=== PATIENT | male | born 2000 | race Asian ===

== ENCOUNTER 2022-02-23 20:47 | Emergency (ER) | payer BC ==
[~2022-02-23] VITALS: Ht 172.7 cm; Wt 58.1 kg
[2022-02-23 20:50] VITALS: BP_SYST 130
--- NOTE | 2022-02-23 20:50 | NUR ---
Patient triaged and placed in waiting room. VSS and patient appears in no acute distress at this time. Accompanied by FRIEND, awaiting available bed, and MD notified of need for MSE.
--- NOTE | 2022-02-23 21:14 | NUR ---
CALLED AND SPOKE WITH DONOVAN AT [facility] [employer] AND INFORMATION GIVEN, THEY WILL BE SENDING OUT AN OFFICER.
--- NOTE | 2022-02-23 21:40 | NUR ---
BROUGHT BACK TO BED #2 AND REPORT GIVEN TO DEXTER
--- NOTE | 2022-02-23 22:20 | NUR ---
DR SAAVEDRA AT BEDSIDE FOR EVALUATION
[2022-02-23] MEDS ORDERED: KETOROLAC TROMETHAMINE 30 MG VIAL IVP ONE (23:00)
[2022-02-23 23:13] LABS: BASOPHILS % (AUTO) 0.2 % (0.0-2.0); EOSINOPHILS % (AUTO) 0.3 % (0.0-4.0); HEMATOCRIT 46.4 % (36-54); HEMOGLOBIN 15.8 g/dL (14.0-18.0); LYMPHOCYTES # (AUTO) 1.5 K/uL (1.0-5.5); LYMPHOCYTES % (AUTO) 14.3 % (20.5-51.5); MEAN CORPUSCULAR HEMOGLOBIN 31 pg (27-31); MEAN CORPUSCULAR HGB CONC 34 % (32-36); MEAN CORPUSCULAR VOLUME 92 fL (79.0-98.0); MONOCYTES # (AUTO) 0.7 K/uL (0.0-1.0); MONOCYTES % (AUTO) 6.9 % (1.7-9.3); NEUTROPHILS # (AUTO) 8.3 K/uL (1.8-7.7); NEUTROPHILS % (AUTO) 78.3 % (40.0-70.0); PLATELET COUNT (AUTO) 190 K/uL (130-430); RED BLOOD CELL COUNT(AUTO) 5.05 MIL/uL (4.2-6.2); RED CELL DISTRIBUTION WIDTH 13.6 % (9.0-15.0); WHITE BLOOD COUNT (AUTO) 10.6 K/uL (4.8-10.8)
[2022-02-23] MEDS ORDERED: NACL 0.9% 1,000 ML IV ONE (23:15)
[2022-02-23] MEDS ORDERED: MORPHINE 4 MG INJ. 4 MG/ML VIAL IVP ONE (23:15)
--- NOTE | 2022-02-23 23:44 | NUR ---
[facility] [employer] AT BEDSIDE FOR EVALUATION
[2022-02-23 23:45] LABS: CALCIUM 9.2 mg/dL (8.4-11.0); CREATININE 0.79 mg/dL (0.55-1.30); POTASSIUM 3.4 mmol/L (3.5-5.1)
[2022-02-23 23:51] LABS: ALBUMIN 4.1 g/dL (3.4-4.8); TOTAL BILIRUBIN 1.3 mg/dL (0.0-1.0)
[2022-02-24] MEDS ORDERED: iohexoL 300 mgI/mL, 150 ML INFUS..BTL IV ONE (00:02)
--- NOTE | 2022-02-24 01:01 | NUR ---
REPORT WAS MADE BY OFFICER CECILE FROM [facility], REPORT #[id number]
[2022-02-24] MEDS ORDERED: IBUP-1969 PO (03:19)
--- NOTE | 2022-02-24 03:31 | NUR ---
Patient given written and verbal discharge instructions and verbalizes understanding. ER MD discussed with patient the results and treatment provided. Patient in stable condition. ID arm band removed. IV catheter removed intact and dressing applied, no active bleeding. Rx of [place] 5 mg given. Patient educated on pain management and to follow up with PMD. Pain Scale 0. Opportunity for questions provided and answered. Medication side effect fact sheet provided.
[2022-02-24 03:32] VITALS: BP_SYST 130
== END 2022-02-24 03:31 | disposition home or self-care (01) ==
LOC: SED 20:47
DX: S22.41XA Multiple fractures of ribs, right side, initial encounter for closed fracture (principal); Z79.899 Other long term (current) drug therapy; Y04.0XXA Assault by unarmed brawl or fight, initial encounter; Y93.89 Activity, other specified; Y92.89 Other specified places as the place of occurrence of the external cause; Y99.8 Other external cause status
CPT/HCPCS: 99285; 80053; 85025; 36415; 70450; 96374; 96361; 70491; 71260; 74177; 76376; J2270; Q9967; J7030